=== PATIENT | female | born 1995 | race Caucasian/White ===

== ENCOUNTER 2018-01-22 07:12 | Emergency (ER) | payer OTHER ==
[~2018-01-22] VITALS: Ht 154.9 cm; Wt 59.0 kg
[2018-01-22 07:20] VITALS: Ht 154.9 cm; Wt 59.0 kg
[2018-01-22 08:20] VITALS: BP 101/65
== END 2018-01-22 08:51 | disposition home or self-care (01) ==
LOC: ED 07:12
DX: R07.89 Other chest pain (principal); R06.02 Shortness of breath; Z88.8 Allergy status to other drugs, medicaments and biological substances; Z86.2 Personal history of diseases of the blood and blood-forming organs and certain disorders involving the immune mechanism
CPT/HCPCS: 82962; Q0092